=== PATIENT | female | born 1945 | race Caucasian/White ===

== ENCOUNTER 2017-02-18 13:27 | Observation (INO) | payer OTHER ==
[~2017-02-18] VITALS: Ht 157.5 cm; Wt 92.8 kg
[~2017-02-18 13:27] MED LIST: ASPIR-LOW81 MG PO; ATORVASTATIN CA40 MG PO; CELECOXIB200 MG PO; CYANOCOBALAM1000 MCG PO; DOCUSATE SODIU100 MG PO; HYDROCHLOROTH12.5 M3 PO; LEVOTHYROXINE112 MCG PO; LOSARTAN POTAS100 MG PO; MYCOSTATIN 100,60 ML PO; ORABASE-B7 GM MM; PREVACID 24HR15 MG PO; TYLENOL EXTRA500 MG PO; TYLENOL REGULA325 MG PO; Tears Naturale II,Ar BOTH EYES; VITAMIN D1000 UNIT PO; VITAMIN D33000 UNIT PO
[2017-02-18 14:11] LABS: HEMATOCRIT 41.6 % (36.0-46.0); MCH 30.7 PG (29.0-34.0); MCHC 32.5 G/DL (30.0-36.0); MCV 94.5 FL (83-99); MEAN PLAT.VOLUME 10.1 uM^3 (9.5-12.4); PLATELET COUNT 360 K/uL (156-360); RBC DIS.WIDTH-CV 12.6 % (11.8-14.6); RBC DIS.WIDTH-SD 43.6 % (39-53); WHITE BLOOD COUNT 13.3 K/uL (4.1-10.2)
[2017-02-18 14:20] LABS: CHLORIDE 101 mEq/L (99-109); SODIUM 135 mEq/L (136-147)
[2017-02-18 14:22] LABS: GLUCOSE 130 mg/dL (70-99)
[2017-02-18 14:23] LABS: ANION GAP 11 MEQ/L (2-14)
[2017-02-18 14:26] LABS: GFR ESTIMATE (CALCULATED) 47 mL/min/
[2017-02-18 14:27] LABS: UREA NITROGEN (BUN) 15 mg/dL (9-23)
[2017-02-18 14:32] LABS: TROP-I INTERPRETATION NEGATIVE; TROPONIN-I 0.01 ng/mL (0.0-0.30)
[2017-02-18] MEDS ORDERED: LEVO-T112 MCG PO (15:08)
[2017-02-18] MEDS ORDERED: GABAPENTIN100 MG PO (15:09)
[2017-02-18 16:07] LABS: TOTAL BILIRUBIN 0.5 mg/dL (0.0-1.0)
[2017-02-18 16:08] LABS: ALKALINE PHOSPHATASE 139 IU/L (3-129)
[2017-02-18 16:11] LABS: DIRECT BILIRUBIN 0.2 mg/dL (0.0-0.3)
[2017-02-18 16:12] LABS: LIPASE 163 U/L (1.0-51.0)
[2017-02-18 18:50] LABS: TROP-I INTERPRETATION NEGATIVE; TROPONIN-I 0.03 ng/mL (0.0-0.30)
[2017-02-18] MEDS ORDERED: LIPITOR40 MG PO (20:25)
[2017-02-18] MEDS ORDERED: COZAAR100 MG PO (20:25)
[2017-02-18] MEDS ORDERED: HYDROCHLOROTH12.5 M3 PO (20:26)
[2017-02-18] MEDS ORDERED: LO-DOSE ASPIRIN81 M2 PO (20:26)
[2017-02-18] MEDS ORDERED: PRILOSEC20 MG PO (20:28)
[2017-02-18 22:44] VITALS: BP 141/64
[2017-02-19 00:55] LABS: TROP-I INTERPRETATION NEGATIVE; TROPONIN-I 0.03 ng/mL (0.0-0.30)
[2017-02-19 04:04] VITALS: BP 113/55
[2017-02-19 05:56] LABS: HEMATOCRIT 36.9 % (36.0-46.0); MCH 30.6 PG (29.0-34.0); MCHC 32.8 G/DL (30.0-36.0); MCV 93.4 FL (83-99); MEAN PLAT.VOLUME 10.4 uM^3 (9.5-12.4); PLATELET COUNT 296 K/uL (156-360); RBC DIS.WIDTH-CV 12.6 % (11.8-14.6); RBC DIS.WIDTH-SD 43.1 % (39-53); RED BLOOD COUNT 3.95 M/uL (3.80-5.20); WHITE BLOOD COUNT 10.7 K/uL (4.1-10.2)
[2017-02-19 06:22] LABS: ANION GAP 9 MEQ/L (2-14); CHLORIDE 101 MEQ/L (99-109); GFR ESTIMATE (CALCULATED) > 59 mL/min/; POTASSIUM 4.1 MEQ/L (3.7-5.4); SAMPLE HEMOLYSIS CHECK 0; SAMPLE ICTERIC CHECK 0; SAMPLE LIPEMIA CHECK 0; SODIUM 138 MEQ/L (136-147); UREA NITROGEN (BUN) 16 mg/dL (9-23)
[2017-02-19 06:31] LABS: GLUCOSE 95 mg/dL (70-99)
[2017-02-19 07:34] VITALS: BP 115/59
[2017-02-19 09:39] LABS: TROP-I INTERPRETATION NEGATIVE; TROPONIN-I 0.06 ng/mL (0.0-0.30)
[2017-02-19 12:01] VITALS: BP 105/52
== END 2017-02-19 14:06 | disposition home or self-care (01) ==
LOC: EME 13:27 → 5WEST 20:25 → EDOF 20:25 → 5WEST 22:31
PROVIDERS: Emergency Medicine; Hospitalist
DX: R07.9 Chest pain, unspecified (principal); K21.9 Gastro-esophageal reflux disease without esophagitis; I10 Essential (primary) hypertension; E03.9 Hypothyroidism, unspecified; E78.5 Hyperlipidemia, unspecified; R06.02 Shortness of breath; R11.0 Nausea; R61 Generalized hyperhidrosis; R42 Dizziness and giddiness; R10.13 Epigastric pain; R19.7 Diarrhea, unspecified
CPT/HCPCS: 71020; 76705; 80048; 80076; 83690; 84484; 85027; 93005; 93306; 99281; 99285; G0378; J1644

== ENCOUNTER → 2017-03-08 | Outpatient (CLI) | payer OTHER ==
[~2017-03-08] MED LIST changes: +COZAAR100 MG PO; +GABAPENTIN100 MG PO; +LEVO-T112 MCG PO; +LIPITOR40 MG PO; +LO-DOSE ASPIRIN81 M2 PO; +MECLIZINE HCL12.5 M1 PO; +OMEPRAZOLE40 M1 PO; +PRILOSEC20 MG PO; +VENTOLIN HFA18 GM IH
== END | disposition home or self-care (01) ==
LOC: NUC 08:05
DX: I25.9 Chronic ischemic heart disease, unspecified (principal); I10 Essential (primary) hypertension; E78.5 Hyperlipidemia, unspecified
CPT/HCPCS: 78452; 93017; A9500; J2785

== ENCOUNTER 2017-03-12 08:19 | Day surgery (SDC) | payer OTHER ==
[~2017-03-12] VITALS: Ht 157.5 cm; Wt 75.5 kg
[2017-03-12 17:53] VITALS: BP 154/75
[2017-03-12 20:00] VITALS: BP 141/63
[2017-03-12 23:55] VITALS: BP 151/67
[2017-03-13 04:00] VITALS: BP 113/55
[2017-03-13 05:48] LABS: EOSINOPHIL (%) 2.1 % (0-5); EOSINOPHIL COUNT 0.2 K/uL (0-0.3); HEMATOCRIT 35.4 % (36.0-46.0); IMMATURE GRANULOCYTE (%) 0.5 % (0.0-0.7); INSTRUMENT ABS NEUTROPHIL CT 4.7 K/uL; LYMPHOCYTE COUNT 2.9 K/uL (1.0-2.8); MCH 31.6 PG (29.0-34.0); MCHC 33.6 G/DL (30.0-36.0); MCV 93.9 FL (83-99); MEAN PLAT.VOLUME 10.8 uM^3 (9.5-12.4); MONOCYTE (%) 9.6 % (3-12); MONOCYTE COUNT 0.8 K/uL (0-0.8); NEUTROPHIL (%) 54.1 % (45-76); NEUTROPHIL COUNT 4.7 K/uL (1.8-6.4); PLATELET COUNT 315 K/uL (156-360); RBC DIS.WIDTH-SD 44.4 % (39-53); RED BLOOD COUNT 3.77 M/uL (3.80-5.20); WHITE BLOOD COUNT 8.6 K/uL (4.1-10.2)
[2017-03-13 06:15] LABS: ANION GAP 9 MEQ/L (2-14); CHLORIDE 104 MEQ/L (99-109); GFR ESTIMATE (CALCULATED) 58 mL/min/; GLUCOSE 100 mg/dL (70-99); SAMPLE HEMOLYSIS CHECK 0; SAMPLE ICTERIC CHECK 0; SAMPLE LIPEMIA CHECK 0; SODIUM 139 MEQ/L (136-147); UREA NITROGEN (BUN) 16 mg/dL (9-23)
[2017-03-13 07:40] VITALS: BP 131/63
[2017-03-13] MEDS ORDERED: EFFIENT10 MG PO (08:16)
== END 2017-03-13 13:11 | disposition home or self-care (01) ==
LOC: CATH 08:19 → 2SOUTH 10:45 → ENRESERV 10:47 → CANRESERV 10:47 → 4EAST 17:30 → ENRESERV 17:30 → ENPENDDIS 03-13 → 4EAST 03-13 13:11
PROVIDERS: Internal Medicine Cardiovascular Disease
DX: I25.10 Atherosclerotic heart disease of native coronary artery without angina pectoris (principal); I10 Essential (primary) hypertension; E78.5 Hyperlipidemia, unspecified; Z86.39 Personal history of other endocrine, nutritional and metabolic disease; Z92.3 Personal history of irradiation; M19.90 Unspecified osteoarthritis, unspecified site; J45.909 Unspecified asthma, uncomplicated; Z86.73 Personal history of transient ischemic attack (TIA), and cerebral infarction without residual deficits; Z86.19 Personal history of other infectious and parasitic diseases; Z79.82 Long term (current) use of aspirin
CPT/HCPCS: 80048; 85025; 85347; 93005; 99202; C1725; C1769; C1874; C1887; G0378; J1644; J2250; J3010; J3246

== ENCOUNTER 2017-05-19 13:47 | Emergency (ER) | payer OTHER ==
[~2017-05-19] VITALS: Ht 160 cm; Wt 73.2 kg
[~2017-05-19 13:47] MED LIST changes: +EFFIENT10 MG PO
[2017-05-19 14:14] VITALS: BP 158/75
== END 2017-05-19 16:34 | disposition home or self-care (01) ==
LOC: EME 13:47
DX: S63.615A Unspecified sprain of left ring finger, initial encounter (principal); W01.0XXA Fall on same level from slipping, tripping and stumbling without subsequent striking against object, initial encounter; Z95.5 Presence of coronary angioplasty implant and graft; Z79.82 Long term (current) use of aspirin
CPT/HCPCS: 73140; 99281; 99283